=== PATIENT | female | born 1960 | race Caucasian/White ===

== ENCOUNTER 2022-05-30 18:56 | Emergency (ER) | payer OTHER ==
--- NOTE | 2022-05-30 19:40 | NUR ---
Patient called multiple times, with no answer. Patient left without being triaged.
== END 2022-05-30 19:42 | disposition left against medical advice (07) ==
LOC: ER 19:00
DX: Z53.21 Procedure and treatment not carried out due to patient leaving prior to being seen by health care provider (principal)